=== PATIENT | female | born 1940 | race Caucasian/White ===

== ENCOUNTER 2020-08-17 12:09 | Outpatient (REF) | payer MEDICARE, SELFPAY ==
--- NOTE | 2020-08-17 12:04 | SKI_PTH ---
PATIENT: CLIFTON SHETH LOC: [facility] U#:[id number] AGE/SX: 79/F ROOM: RE08/17/[address]: Reinaldo De Dios DO : 1940 BED: DIS: 08/17/2020 SPEC #: [id number] RECD: 08/17/20 18:17 STATUS: IGNACIO REQ #: [id number] BRIA: 08/17/20 12:[address]: Reinaldo De Dios DEPT: Surgical Specimen RECD BY: Rosy Muniz ENTERED: 08/17/20 18:18 SP TYPE: LC TALBOT DR: None Tissues: 1 - SKIN BIOPSY(SHAVE/PUNCH) Procedures: SKIN LEVEL 4 Comments: [id number]
== END 2020-08-17 12:29 ==
LOC: LBN 12:09
PROVIDERS: Visit Provider Otolaryngology Otolaryngology/Facial Plastic Surgery
DX: C44.329 Squamous cell carcinoma of skin of other parts of face (principal)
CPT/HCPCS: 88305

== ENCOUNTER 2020-09-17 07:10 | Outpatient (CLI) | payer MEDICARE, SELFPAY ==
[2020-09-18 17:01] LABS: SARS-CoV-2 RNA Not Detected (NotDetected); SARS-CoV-2 RNA Source Nasal/Nares
== END 2020-09-17 07:30 ==
PROVIDERS: Visit Provider Otolaryngology Otolaryngology/Facial Plastic Surgery
DX: Z11.59 Encounter for screening for other viral diseases (principal)
CPT/HCPCS: U0003

== ENCOUNTER 2020-09-21 06:14 | Day surgery (SDC) | payer MEDICARE, SELFPAY ==
[2020-09-21 06:23] VITALS: BP 134/77; PULSE 63; RESP 16; TEMP 36.4; O2SAT 93
--- NOTE | 2020-09-21 08:00 | SKI_PTH ---
PATIENT: CLIFTON SHETH LOC: [facility] U#:[id number] AGE/SX: 79/F ROOM: RE09/21/[address]: Reinaldo De Dios DO : 1940 BED: DIS: 09/21/2020 SPEC #: [id number] RECD: 09/21/20 11:03 STATUS: IGNACIO REQ #: [id number] BRIA: 09/21/20 08:[address]: Reinaldo De Dios DEPT: Surgical Specimen RECD BY: Althea Giang ENTERED: 09/21/20 11:07 SP TYPE: SKI OTHR DR: No Local Tissues: 1 - SKIN BIOPSY(SHAVE/PUNCH) 2 - SKIN BIOPSY(SHAVE/PUNCH) 3 - FROZEN SECTION EXAM 4 - FROZEN SECTION- EXTRA SPECIMEN Procedures: FROZEN SECTION EXTRA SKIN LEVEL 4 FROZEN SECTION EXAM Comments: [id number] ([id number] [facility] [place]#) (7 SLIDES INCLUDED)
[2020-09-21] MEDS: Oxymetazolone 0.05% SPRAY 15 ML BTL (08:12)
[2020-09-21] MEDS: Bacitracin 30 GM TUBE (08:12)
--- NOTE | 2020-09-21 08:30 | W.PM.DSUDISC ---
Discharge Plan Disposition Patient Disposition: HOME Condition: Good Discharge Details Attending Provider: Reinaldo De Dios Primary Care Provider: No,Local Home Meds and New Rx's Prescriptions: No Action Atorvastatin Calcium 20 MG tablet 20 mg PO DAILY RF: 0 metformin 500 MG tablet 500 mg PO HS RF: 0 sertraline 100 MG tablet 100 mg PO DAILY RF: 0 levothyroxine 100 MCG tablet 100 mcg PO DAILY RF: 0 diphenhydramine HCl [Allergy Relief(diphenhydramin)] 25 MG capsule 50 mg PO HS RF: 0 lansoprazole 15 MG capsule,delayed release(DR/EC) 15 mg PO DAILY RF: 0 multivitamin with minerals [Multiple Vitamin-Minerals] 1 EACH tablet 1 ea PO DAILY RF: 0 metoprolol tartrate 25 MG tablet 25 mg PO BID RF: 0 cholecalciferol (vitamin D3) [Vitamin D3] 2,000 UNIT capsule 2,000 unit PO DAILY RF: 0 Fish Oil 1 EACH capsule 625 mg PO DAILY RF: 0 spironolacton-hydrochlorothiaz 1 EACH tablet 1 tab-cap PO DAILY RF: 0 Trelegy Ellipta 100-62.5-25 mcg blister with device 1 inh INHALATION DAILY PRNRF: 0 aspirin 81 mg Capsule,Delayed Release(Dr/Ec) 81 mg PO DAILY RF: 0 Breo Ellipta 1 EACH blister with device 1 ea Inhalation DAILY RF: 0 albuterol sulfate [ProAir HFA] 200 PUFF HFA aerosol inhaler 2 puff Inhalation PRN PRNRF: 0 Incruse Ellipta 1 PUFF blister with device 1 puff Inhalation DAILY RF: 0 Discharge Instructions Additional Instructions: see sheet Activity:: Activity as Tolerated Remove Dressings/Wound Care:: 24 hours Shower/Bathe:: 24 hours Diet:: As Tolerated DS: Diagnosis Discharge Diagnosis (1) SCCA (squamous cell carcinoma) of skin: Status: Acute
--- NOTE | 2020-09-21 08:31 | W.PM.OP ---
Operative Note Operative Note DATE OF PROCEDURE: 09/21/20 PRE-OP DIAGNOSIS: SCCA L angle mandible/cheek skin POST-OP DIAGNOSIS: same PROCEDURE: Excision, frozen section squamous cell carcinoma left angle of mandible skin, intermediate closure totaling 5.9 cm SURGEON: Reinaldo De Dios ANESTHESIA: local (10 cc 1% lidocaine with 1-100,000 epinephrine) ESTIMATED BLOOD LOSS: 2 PATHOLOGY: other COMPLICATIONS: None Patient was transported to: PACU Patient's condition: stable Indications: Biopsy-proven squamous cell carcinoma, moderately differentiated positivity at the base of the left angle of mandible skin left cheek. Decision was made for proceed with surgery, discussed risk of complications especially to the marginal mandibular nerve or the facial nerve. Patient is opted to proceed with local excision. Procedure Description: Patient was brought back to the operating suite in stable condition, placed supine on the operative table and timeout was taken to confirm proper patient and procedure. 10 cc of 1% lidocaine with 1 100,000 epinephrine was injected into the left angle of mandible skin and cheek. Patient was prepped and draped in sterile fashion. 15 blade scalpel was used to excise the lesion which was measuring 2.9 cm. Hemostasis controlled with bipolar cautery. Colored sutures were placed for pathological orientation. Frozen section performed, margins negative. Additional backup required to the 9:00 surface dogear sent for final pathology analysis total wound 5.9 cm, triple layer closure was performed with 3-0 Monocryl for Monocryl followed by 4-0 nylon. Ointment and Band-Aids placed, the patient tolerated the procedure well was awake the whole time under local did great. Stable to recovery
[2020-09-21] MEDS: Ibuprofen 600 MG TAB PO (09:20)
== END 2020-09-21 09:42 | disposition home or self-care (01) ==
PROVIDERS: Visit Provider Otolaryngology Otolaryngology/Facial Plastic Surgery
PROC: (CPT 11646; principal; 2020-09-21 07:30)
DX: C44.329 Squamous cell carcinoma of skin of other parts of face (principal); J44.9 Chronic obstructive pulmonary disease, unspecified; I47.1 Supraventricular tachycardia; Z79.899 Other long term (current) drug therapy
CPT/HCPCS: 11646; 12053; 88305; 88331; 88332